=== PATIENT | female | born 1950 | race Caucasian/White ===

== ENCOUNTER 2025-04-24 16:32 | Emergency (ER) | payer BC ==
[2025-04-24] MEDS ORDERED: TORADOL ONE (17:32)
== END 2025-04-24 19:30 | disposition home or self-care (01) ==
LOC: ER 16:32
DX: S00.83XA Contusion of other part of head, initial encounter (principal); M25.511 Pain in right shoulder; R07.81 Pleurodynia; Z88.5 Allergy status to narcotic agent; Z90.49 Acquired absence of other specified parts of digestive tract; Z90.710 Acquired absence of both cervix and uterus; W01.0XXA Fall on same level from slipping, tripping and stumbling without subsequent striking against object, initial encounter; Y93.89 Activity, other specified; Y92.89 Other specified places as the place of occurrence of the external cause; Y99.8 Other external cause status
CPT/HCPCS: 70450; 99283; 99284; J1885; 71101-RT; 73030-RT

== ENCOUNTER 2025-06-14 18:50 | Observation (INO) | payer MEDICARE, OTHER ==
[~2025-06-14] VITALS: Ht 165.1 cm; Wt 103.0 kg
[2025-06-14 18:55] VITALS: BP 155/79; PULSE 69; RESP 18; TEMP 98.5; O2SAT 97
[2025-06-14] MEDS ORDERED: NS 1000ML 1,000 ML ONE (19:26)
[2025-06-14] MEDS ORDERED: ZOFRAN ONE (19:27)
[2025-06-14] MEDS ORDERED: MORPHINE SULFATE ONE ×2 (19:27→20:47)
[2025-06-14 19:38] LABS: BASOPHIL # 0.0 10^3/uL (0.0-0.1); BASOPHIL % 0.6 % (0.1-1.2); EOSINOPHIL # 0.1 10^3/uL (0.0-0.2); EOSINOPHIL % 1.8 % (0.0-5.0); HEMATOCRIT(ML) 40.5 % (36.0-46.0); IG % 0.30 % (0.00-0.50); LYMPHOCYTES # 2.67 10^3/uL1 (1.0-4.8); LYMPHOCYTES % 39.3 % (24.0-44.0); MEAN CORP HGB 29.3 pg (26-34); MEAN CORP HGB CONCENTRATION 32.6 g/dL (33-36.5); MEAN CORP VOLUME 89.8 fL (78-100); MONOCYTES # 0.7 10^3/uL (0.3-0.8); MONOCYTES % 10.0 % (5.0-12.0); NEUTROPHIL # 3.3 10^3/uL (1.8-7.7); NEUTROPHILS % 48.0 % (41.0-85.0); RED BLOOD CELL 4.51 10^6/uL (4.00-5.20); RED CELL DISTRIBUTION WIDTH 13.1 % (11.5-14.5); WHITE BLOOD CELL 6.8 10^3/uL (4.5-11.0)
[2025-06-14] MEDS: ZOFRAN IV STA (19:38)
[2025-06-14] MEDS: NS 1000ML 1,000 ML IV ONE (19:38)
[2025-06-14] MEDS: MORPHINE SULFATE IV STA ×2 (19:39→20:51)
[2025-06-14 19:50] LABS: ALANINE AMINOTRANSFERASE(ML) 20.0 U/L (12-78); ALBUMIN(ML) 3.9 g/dL (3.4-5.0); CREATININE SERUM 1.29 mg/dL (0.59-1.40); EST GFR, NON-AA 40.4 (>/=60)
[2025-06-14 19:53] VITALS: BP 159/89; PULSE 72; RESP 18; TEMP 98.5; O2SAT 97
[2025-06-14] MEDS ORDERED: COMPAZINE ONE (20:28)
[2025-06-14] MEDS: COMPAZINE IV STA (20:32)
[2025-06-14 20:46] VITALS: BP 164/75; PULSE 75; RESP 18; O2SAT 97
[2025-06-14] MEDS ORDERED: TORADOL ONE (20:47)
[2025-06-14] MEDS: TORADOL IV STA (20:53)
[2025-06-14 21:07] VITALS: BP 148/87; PULSE 79; RESP 18; O2SAT 95
[2025-06-14 21:36] VITALS: BP 164/79; PULSE 83; RESP 18; O2SAT 96
[2025-06-14] MEDS ORDERED: MELATONIN PO PRN (22:00)
[2025-06-14] MEDS ORDERED: TYLENOL PO PRN (22:00)
[2025-06-14] MEDS ORDERED: MORPHINE SULFATE IV PRN (22:00)
[2025-06-14] MEDS: NS 1000ML 1,000 ML IV SCH (22:41)
[2025-06-14] MEDS: VALTREX PO SCH (22:41)
[2025-06-14] MEDS: LYRICA PO SCH (22:41)
[2025-06-15] VITALS (7 sets, daily range): BP systolic 96–177; BP diastolic 56–91; PULSE 64–97; RESP 16–20; TEMP 97.2–98.3; O2SAT 90–98
[2025-06-15] MEDS ORDERED: [UNRECOGNIZED DRUG - CODE] PO (01:07)
[2025-06-15] MEDS ORDERED: OMEP40CA8 PO (01:07)
[2025-06-15] MEDS ORDERED: PIOG30TA27 PO (01:07)
[2025-06-15] MEDS ORDERED: ASPI-929 PO (01:07)
[2025-06-15] MEDS ORDERED: GLIM2TAB7 PO (01:07)
[2025-06-15] MEDS ORDERED: CHOL125C5 PO (01:07)
[2025-06-15] MEDS ORDERED: LOSA1TAB22 PO (01:07)
[2025-06-15] MEDS ORDERED: DULA3PEN IJ (01:07)
[2025-06-15 05:50] LABS: BASOPHIL # 0.0 10^3/uL (0.0-0.1); BASOPHIL % 0.2 % (0.1-1.2); EOSINOPHIL # 0.0 10^3/uL (0.0-0.2); EOSINOPHIL % 0.0 % (0.0-5.0); HEMATOCRIT(ML) 38.7 % (36.0-46.0); IG % 0.30 % (0.00-0.50); LYMPHOCYTES # 0.89 10^3/uL1 (1.0-4.8); LYMPHOCYTES % 14.3 % (24.0-44.0); MEAN CORP HGB 29.0 pg (26-34); MEAN CORP HGB CONCENTRATION 32.6 g/dL (33-36.5); MEAN CORP VOLUME 89.0 fL (78-100); MONOCYTES # 0.1 10^3/uL (0.3-0.8); MONOCYTES % 1.0 % (5.0-12.0); NEUTROPHIL # 5.3 10^3/uL (1.8-7.7); NEUTROPHILS % 84.2 % (41.0-85.0); RED BLOOD CELL 4.35 10^6/uL (4.00-5.20); RED CELL DISTRIBUTION WIDTH 13.0 % (11.5-14.5); WHITE BLOOD CELL 6.2 10^3/uL (4.5-11.0)
[2025-06-15 06:12] LABS: ALANINE AMINOTRANSFERASE(ML) 17.0 U/L (12-78); ALBUMIN(ML) 3.2 g/dL (3.4-5.0); CREATININE SERUM 1.31 mg/dL (0.59-1.40); EST GFR, NON-AA 39.7 (>/=60)
[2025-06-15] MEDS ORDERED: TYLENOL PO PRN (14:00)
[2025-06-15] MEDS ORDERED: DEXTROSE 50%-WATER SYRINGE IV PRN (16:00)
[2025-06-15] MEDS: ACTOS PO SCH (16:13)
[2025-06-15] MEDS: ZOFRAN IV PRN (16:14)
[2025-06-15] MEDS: AMARYL PO SCH (20:52)
[2025-06-16 00:05] VITALS: BP 94/57; PULSE 66; RESP 18; TEMP 97.1; O2SAT 98
[2025-06-16 04:16] VITALS: BP 94/59; PULSE 64; RESP 18; TEMP 98.2; O2SAT 96
[2025-06-16 05:33] LABS: HEMATOCRIT(ML) 35.9 % (36.0-46.0); MEAN CORP HGB 29.0 pg (26-34); MEAN CORP HGB CONCENTRATION 32.0 g/dL (33-36.5); MEAN CORP VOLUME 90.7 fL (78-100); RED BLOOD CELL 3.96 10^6/uL (4.00-5.20); RED CELL DISTRIBUTION WIDTH 13.6 % (11.5-14.5); WHITE BLOOD CELL 8.0 10^3/uL (4.5-11.0)
[2025-06-16 06:02] LABS: CREATININE SERUM 1.67 mg/dL (0.59-1.40); EST GFR, NON-AA 30.0 (>/=60)
[2025-06-16 07:49] VITALS: BP 124/57; PULSE 79; RESP 18; TEMP 98.7; O2SAT 91
[2025-06-16] MEDS: HYDROCHLOROTHIAZIDE PO SCH (10:06)
[2025-06-16] MEDS: COZAAR PO SCH (10:07)
[2025-06-16] MEDS: ASPIRIN EC PO SCH (10:07)
[2025-06-16] MEDS: ACTOS PO SCH (10:08)
[2025-06-16 12:09] VITALS: BP 136/73; PULSE 67; RESP 20; TEMP 97.7; O2SAT 98
[2025-06-16 14:34] VITALS: BP 136/73; PULSE 67; RESP 20; TEMP 97.7; O2SAT 98
== END 2025-06-16 14:30 | disposition home or self-care (01) ==
LOC: ER 18:50 → OBS 21:48
PROVIDERS: ADMIT Family Medicine; ATTEND Student in an Organized Health Care Education/Training Program
DX: R51.9 Headache, unspecified (principal); G50.1 Atypical facial pain; E11.9 Type 2 diabetes mellitus without complications; I10 Essential (primary) hypertension; H53.8 Other visual disturbances; Z79.82 Long term (current) use of aspirin; Z90.710 Acquired absence of both cervix and uterus; Z98.890 Other specified postprocedural states; Z79.899 Other long term (current) drug therapy
CPT/HCPCS: 96374; 96361 ×2; 96375; 96376 ×2; 99285; 70553; 70450; 80053 ×2; 85025 ×2; 36415 ×3; 85651; 82948 ×2; 85027; 80048; 84443; G0378 ×4; J2270; J7030 ×2; J0780; J2405 ×2; J1885; J2919; A9579; J1815

== ENCOUNTER 2025-06-27 17:32 | Emergency (ER) | payer MEDICARE, OTHER ==
[~2025-06-27] VITALS: Ht 160 cm; Wt 81.6 kg
[~2025-06-27 17:32] MED LIST: ASPI-929 PO; CHOL125C5 PO; DULA3PEN IJ; GLIM2TAB7 PO; LOSA1TAB22 PO; OMEP40CA8 PO; PIOG30TA27 PO; [UNRECOGNIZED DRUG - CODE] PO
[2025-06-27 17:45] VITALS: BP 149/86; PULSE 77; RESP 18; TEMP 98.2; O2SAT 98
[2025-06-27] MEDS ORDERED: COMPAZINE ONE (18:00)
[2025-06-27] MEDS ORDERED: NS 1000ML 1,000 ML ONE (18:00)
[2025-06-27] MEDS ORDERED: OFIRMEV 100 ML IV ONE (18:01)
[2025-06-27] MEDS: NS 1000ML 1,000 ML STA (18:05)
[2025-06-27] MEDS: COMPAZINE IV STA (18:05)
[2025-06-27] MEDS: OFIRMEV 100 ML IV STA (18:05)
[2025-06-27 18:15] LABS: BASOPHIL # 0.0 10^3/uL (0.0-0.1); BASOPHIL % 0.3 % (0.1-1.2); EOSINOPHIL # 0.1 10^3/uL (0.0-0.2); EOSINOPHIL % 1.0 % (0.0-5.0); HEMATOCRIT(ML) 41.5 % (36.0-46.0); IG % 0.20 % (0.00-0.50); LYMPHOCYTES # 1.19 10^3/uL1 (1.0-4.8); LYMPHOCYTES % 20.1 % (24.0-44.0); MEAN CORP HGB 29.0 pg (26-34); MEAN CORP HGB CONCENTRATION 32.0 g/dL (33-36.5); MEAN CORP VOLUME 90.6 fL (78-100); MONOCYTES # 0.6 10^3/uL (0.3-0.8); MONOCYTES % 9.8 % (5.0-12.0); NEUTROPHIL # 4.1 10^3/uL (1.8-7.7); NEUTROPHILS % 68.6 % (41.0-85.0); RED BLOOD CELL 4.58 10^6/uL (4.00-5.20); RED CELL DISTRIBUTION WIDTH 13.7 % (11.5-14.5); WHITE BLOOD CELL 5.9 10^3/uL (4.5-11.0)
[2025-06-27 18:26] LABS: INR 1.0; PROTHROMBIN PROTIME 10.2 SEC (9.0-11.0)
[2025-06-27 18:29] LABS: ALANINE AMINOTRANSFERASE(ML) 11.0 U/L (12-78); ALBUMIN(ML) 3.5 g/dL (3.4-5.0); CREATININE SERUM 1.31 mg/dL (0.59-1.40); EST GFR, NON-AA 39.7 (>/=60)
[2025-06-27 20:43] VITALS: BP 140/59; PULSE 61; RESP 18; O2SAT 98
[2025-06-27 21:14] VITALS: BP 128/57; PULSE 61; RESP 18; TEMP 98.6; O2SAT 98
[2025-06-27] MEDS ORDERED: ZOFRAN ONE (21:55)
[2025-06-27] MEDS ORDERED: DILAUDID 0.5 MG/0.5 ML SYRINGE ONE (21:56)
[2025-06-27] MEDS: DILAUDID 0.5 MG/0.5 ML SYRINGE IV STA (22:03)
[2025-06-27] MEDS: ZOFRAN IV STA (22:03)
== END 2025-06-27 22:07 | disposition home or self-care (01) ==
LOC: ER 17:32
DX: D32.0 Benign neoplasm of cerebral meninges (principal); E11.9 Type 2 diabetes mellitus without complications; I10 Essential (primary) hypertension; Z79.01 Long term (current) use of anticoagulants; Z79.899 Other long term (current) drug therapy; Z88.5 Allergy status to narcotic agent; Z90.49 Acquired absence of other specified parts of digestive tract; Z90.710 Acquired absence of both cervix and uterus
CPT/HCPCS: 99285; 70498; 96365; 96366; 96375; 70496; 80053; 85025; 36415; 85610; 85730; 70450; J7030; J0131; J0780; J2405; Q9967; Q9965